=== PATIENT | male | born 1955 | race Caucasian/White ===

== ENCOUNTER → 2020-04-19 | Outpatient (CLI) | payer SELFPAY ==
[~2020-04-19] MED LIST: ANUSOL HC30 GM PO; Anusol Hc,Anuco25 MG PO; BENADRYL25 MG PO; BIAXIN500 MG PO; CELEXA20 MG PO; CLARITIN10 MG PO; CLEOCIN150 MG PO; COLACE100 MG PO; COMBIVENT1 ARO IH; DAILY MULTIPLE1 TA3 PO; HYDROCODONE BIT1 T11 PO; LEVOTHYROXINE0.05 MG PO; LISINOPRIL10 M1 PO; PEPCID20 MG PO; PHENERGAN25 M1 PO; PREDNICOT20 MG PO; TIZANIDINE4 MG PO; VITAMIN D2400 IU PO
== END | disposition home or self-care (01) ==
LOC: COVID19 15:48
DX: R05 Cough (principal); R50.9 Fever, unspecified; R11.10 Vomiting, unspecified; R06.02 Shortness of breath; R53.83 Other fatigue; Z20.828 Contact with and (suspected) exposure to other viral communicable diseases

== ENCOUNTER 2024-02-11 12:12 | Inpatient (IN) | payer OTHER ==
[~2024-02-11] VITALS: Ht 172.7 cm; Wt 56.5 kg
[2024-02-11 12:37] VITALS: BP 106/66
[2024-02-11 12:51] LABS: BASO % 0.2 % (0.0-1.0); EOS # 0.2 10*3/uL (0.0-0.4); HEMATOCRIT 41.6 % (42.0-52.0); LYMPH # 0.7 10*3/uL (1.3-4.4); LYMPH % 11.8 % (27.0-41.0); MEAN CELL VOLUME 103.7 fl (80.0-94.0); MEAN CORPUSCULAR HGB 33.7 pg (27.0-31.0); MEAN CORPUSCULAR HGB CONC 32.5 g/dl (33.0-37.0); MEAN PLATELET VOLUME 10.1 fl (9.6-12.3); MONO # 0.7 10*3/uL (0.1-1.0); MONO % 11.3 % (3.0-9.0); NEUT # 4.4 10*3/uL (2.3-7.9); NEUT % 73.4 % (47.0-73.0); PLATELET COUNT AUTOMATED 231 10*3/uL (130-400); RED BLOOD COUNT 4.01 10*6/uL (4.50-5.90); RED CELL DISTRI WIDTH 14.3 % (0-14.5)
[2024-02-11 13:12] LABS: ALKALINE PHOSPHATASE 63 U/L (46-116); BUN 14 mg/dl (9-23); CHLORIDE 101 mmol/L (98-107); LIPASE 37 U/L (12-53); POTASSIUM 3.6 mmol/L (3.4-5.1); SGPT/ALT 24 U/L (5-49); TOTAL PROTEIN 6.1 gm/dL (6.0-8.0)
[2024-02-11] MEDS ORDERED: Albuterol Sulf/Ipratropium 3 ML VIAL NEB ONE (13:50)
[2024-02-11] MEDS ORDERED: AZITHROMYCIN 250 ML IV ONE (13:50)
[2024-02-11] MEDS ORDERED: Ceftriaxone Sodium 1 GM/10 ML SYR IV ONE (13:50)
[2024-02-11] MEDS ORDERED: methylPREDNISolone sod succ 125 MG VIAL IV ONE (13:50)
[2024-02-11] MEDS ORDERED: ACETAMINOPHEN 325 MG TAB PO PRN (15:20)
[2024-02-11] MEDS ORDERED: BISACODYL 5 MG TAB PO PRN (15:20)
[2024-02-11] MEDS ORDERED: Ondansetron Hydrochloride 4 MG/2 ML VIAL IV PRN (15:20)
[2024-02-11] MEDS ORDERED: LORazepam 1 MG TAB PO PRN (15:30)
[2024-02-11 15:32] VITALS: BP 157/108
[2024-02-11] MEDS ORDERED: IOHEXOL 300 MG/ML 100 ML VIAL IV ONE (15:35)
[2024-02-11] MEDS ORDERED: Albuterol Sulf/Ipratropium 3 ML VIAL NEB SCH (15:45)
[2024-02-11 16:27] VITALS: BP 135/93
[2024-02-11 17:00] VITALS: BP 153/92
[2024-02-11] MEDS ORDERED: Nicotine 21 MG PATCH T SCH (18:00)
[2024-02-11 20:00] VITALS: BP 91/53
[2024-02-11 22:59] VITALS: BP 129/84
[2024-02-11] MEDS ORDERED: Melatonin 5 MG TABLET PO PRN (23:25)
[2024-02-12] VITALS: BP 131/93
[2024-02-12] MEDS ORDERED: Levothyroxine Sodium 50 MCG TAB PO SCH (06:00)
[2024-02-12] MEDS ORDERED: Pantoprazole Sodium 40 MG TAB PO SCH (06:00)
[2024-02-12 06:27] LABS: BASO % 0.2 % (0.0-1.0); EOS % 0.3 % (1.0-4.0); HEMATOCRIT 47.8 % (42.0-52.0); LYMPH # 0.9 10*3/uL (1.3-4.4); MEAN CELL VOLUME 102.8 fl (80.0-94.0); MEAN CORPUSCULAR HGB 33.3 pg (27.0-31.0); MEAN CORPUSCULAR HGB CONC 32.4 g/dl (33.0-37.0); MEAN PLATELET VOLUME 10.6 fl (9.6-12.3); MONO % 9.9 % (3.0-9.0); NEUT # 8.2 10*3/uL (2.3-7.9); NEUT % 80.2 % (47.0-73.0); PLATELET COUNT AUTOMATED 263 10*3/uL (130-400); RED BLOOD COUNT 4.65 10*6/uL (4.50-5.90); WHITE BLOOD COUNT 10.2 10*3/uL (4.8-10.8)
[2024-02-12 06:53] LABS: VITAMIN D, 25-HYDROXY 48.5 ng/mL (30-100)
[2024-02-12 06:54] LABS: BUN 14 mg/dl (9-23); CHLORIDE 100 mmol/L (98-107); CHOLESTEROL 184 mg/dL (<200); FREE T4 1.34 ng/dl (0.89-1.76); LDL CHOLESTEROL 61 mg/dL (9-159); POTASSIUM 3.6 mmol/L (3.4-5.1); TRIGLYCERIDES 74 mg/dl (<150)
[2024-02-12 08:00] VITALS: BP 118/50
[2024-02-12 08:15] VITALS: BP 150/82
[2024-02-12] MEDS ORDERED: hydrALAZINE hydrochloride 20 MG/ML VIAL IV ONE (08:40)
[2024-02-12] MEDS ORDERED: Nicotine 21 MG PATCH T SCH (10:00)
[2024-02-12] MEDS ORDERED: Enoxaparin Sodium 40 MG/0.4 ML SYR SC SCH (10:00)
[2024-02-12] MEDS ORDERED: CITALOPRAM 20 MG TAB PO SCH (10:00)
[2024-02-12] MEDS ORDERED: LISINOPRIL 10 MG TAB PO SCH (10:00)
[2024-02-12] MEDS ORDERED: NICOTINE PATCH1 EAC2 TD (10:49)
[2024-02-12] MEDS ORDERED: VIBRA-TAB100 MG PO (10:49)
[2024-02-12 12:00] VITALS: BP 110/63
[2024-02-12] MEDS ORDERED: Ceftriaxone Sodium 1 GM,IV 1 EA in SYRINGE INFUSION 10 ML IV SCH (14:00)
[2024-02-12] MEDS ORDERED: AZITHROMYCIN 250 ML IV SCH (15:00)
== END 2024-02-12 12:58 | disposition home or self-care (01) | DRG 191 ==
LOC: ED 12:12 → EDHOLD 14:09 → 4E 14:09 → EDHOLD 14:10 → 4E 16:08
PROVIDERS: Emergency Medicine; Registered Nurse; ADMIT Internal Medicine; ATTEND Internal Medicine
DX: J44.0 Chronic obstructive pulmonary disease with (acute) lower respiratory infection (principal); C34.90 Malignant neoplasm of unspecified part of unspecified bronchus or lung; E44.0 Moderate protein-calorie malnutrition; Z68.1 Body mass index [BMI] 19.9 or less, adult; J44.1 Chronic obstructive pulmonary disease with (acute) exacerbation; R91.1 Solitary pulmonary nodule; I10 Essential (primary) hypertension; E03.9 Hypothyroidism, unspecified; J20.9 Acute bronchitis, unspecified; K21.9 Gastro-esophageal reflux disease without esophagitis; F17.210 Nicotine dependence, cigarettes, uncomplicated; F10.90 Alcohol use, unspecified, uncomplicated; Z92.3 Personal history of irradiation; Z88.5 Allergy status to narcotic agent; Z79.899 Other long term (current) drug therapy; Z71.6 Tobacco abuse counseling

== ENCOUNTER 2024-08-21 07:24 | Emergency (ER) | payer OTHER ==
[~2024-08-21] VITALS: Ht 172.7 cm; Wt 56.2 kg
[~2024-08-21 07:24] MED LIST changes: +NICOTINE PATCH1 EAC2 TD; +VIBRA-TAB100 MG PO
[2024-08-21] MEDS ORDERED: Albuterol Sulfate 2.5 MG/3 ML VIAL NEB ONE (07:40)
[2024-08-21] MEDS ORDERED: methylPREDNISolone sod succ 125 MG VIAL IV ONE (07:40)
[2024-08-21] MEDS ORDERED: MAGNESIUM SULFATE 50 ML IV ONE (07:40)
[2024-08-21] MEDS ORDERED: PREDNISONE20 M1 PO (08:41)
[2024-08-21] MEDS ORDERED: AVPAK AZITHROM250 M1 PO (08:41)
== END 2024-08-21 09:29 | disposition home or self-care (01) ==
LOC: ED 07:24
DX: J44.1 Chronic obstructive pulmonary disease with (acute) exacerbation (principal); F41.9 Anxiety disorder, unspecified; R06.02 Shortness of breath; I10 Essential (primary) hypertension; F17.210 Nicotine dependence, cigarettes, uncomplicated; Z88.5 Allergy status to narcotic agent; Z90.89 Acquired absence of other organs

== ENCOUNTER 2024-09-24 15:59 | Inpatient (IN) | payer OTHER ==
[~2024-09-24] VITALS: Ht 165.1 cm; Wt 55.1 kg
[~2024-09-24 15:59] MED LIST changes: +AVPAK AZITHROM250 M1 PO; -LEVOTHYROXINE0.05 MG PO; +LEVOTHYROXINE125 MCG PO; +PREDNISONE20 M1 PO
[2024-09-24 17:16] VITALS: BP 145/95
[2024-09-24] MEDS ORDERED: AZITHROMYCIN 250 MG TAB PO ONE (17:30)
[2024-09-24] MEDS ORDERED: Albuterol Sulfate 2.5 MG/3 ML VIAL NEB ONE (17:30)
[2024-09-24] MEDS ORDERED: MAGNESIUM SULFATE 50 ML IV ONE (17:30)
[2024-09-24] MEDS ORDERED: SODIUM CHLORIDE 0.9% 1,000 ML IV ONE ×3 (17:30→23:14)
[2024-09-24] MEDS ORDERED: methylPREDNISolone sod succ 125 MG VIAL IV ONE (17:30)
[2024-09-24 17:44] LABS: BASO % 0.1 % (0.0-1.0); EOS % 0.1 % (1.0-4.0); HEMATOCRIT 47.5 % (42.0-52.0); LYMPH # 0.3 10*3/uL (1.3-4.4); LYMPH % 2.4 % (27.0-41.0); MEAN CELL VOLUME 97.5 fl (80.0-94.0); MEAN CORPUSCULAR HGB 32.9 pg (27.0-31.0); MEAN CORPUSCULAR HGB CONC 33.7 g/dl (33.0-37.0); MEAN PLATELET VOLUME 9.3 fl (9.6-12.3); MONO % 6.7 % (3.0-9.0); NEUT # 12.8 10*3/uL (2.3-7.9); PLATELET COUNT AUTOMATED 349 10*3/uL (130-400); RED BLOOD COUNT 4.87 10*6/uL (4.50-5.90); RED CELL DISTRI WIDTH 12.7 % (0-14.5); WHITE BLOOD COUNT 14.2 10*3/uL (4.8-10.8)
[2024-09-24 18:00] LABS: BUN 17 mg/dl (9-23); CHLORIDE 99 mmol/L (98-107); POTASSIUM 3.5 mmol/L (3.4-5.1)
[2024-09-24] MEDS ORDERED: Ceftriaxone Sodium 1 GM/10 ML SYR IV ONE (18:05)
[2024-09-24] MEDS ORDERED: ACETAMINOPHEN 650 MG SUPP R PRN (18:35)
[2024-09-24] MEDS ORDERED: BISACODYL 10 MG SUPP R PRN (18:35)
[2024-09-24] MEDS ORDERED: Ondansetron Hydrochloride 4 MG/2 ML VIAL IV PRN (18:35)
[2024-09-24] MEDS ORDERED: BISACODYL 5 MG TAB PO PRN (18:35)
[2024-09-24] MEDS ORDERED: Magnesium Hydroxide 30 ML UDC PO PRN (18:35)
[2024-09-24] MEDS ORDERED: ACETAMINOPHEN 325 MG TAB PO PRN (18:35)
[2024-09-24] MEDS ORDERED: Albuterol Sulf/Ipratropium 3 ML VIAL NEB SCH (19:00)
[2024-09-24] MEDS ORDERED: Nicotine 21 MG PATCH T SCH (21:00)
[2024-09-24 21:43] VITALS: BP 107/73
[2024-09-24] MEDS ORDERED: GUAIFENESIN 600 MG TAB ER PO SCH (22:00)
[2024-09-25] VITALS: BP 110/76
[2024-09-25 00:52] LABS: BILIRUBIN Negative (Negative); BLOOD Negative (Negative); CLARITY Cloudy (Clear); COLOR Yellow (Yellow); GLUCOSE Negative (Negative); KETONE 1+ (Negative); LEUKO ESTERASE Negative (Negative); NITRITE Negative (Negative); PH 5.5 (4.5-8.0)
[2024-09-25 01:00] LABS: BACTERIA 1+; RBC 0-2 rbc/hpf (0-2)
[2024-09-25 06:08] LABS: HEMATOCRIT 47.1 % (42.0-52.0); MEAN CELL VOLUME 96.9 fl (80.0-94.0); MEAN CORPUSCULAR HGB 32.9 pg (27.0-31.0); MEAN PLATELET VOLUME 9.7 fl (9.6-12.3); PLATELET COUNT AUTOMATED 352 10*3/uL (130-400); RED BLOOD COUNT 4.86 10*6/uL (4.50-5.90); RED CELL DISTRI WIDTH 12.8 % (0-14.5); WHITE BLOOD COUNT 13.1 10*3/uL (4.8-10.8)
[2024-09-25 06:39] LABS: ALKALINE PHOSPHATASE 88 U/L (46-116); BUN 15 mg/dl (9-23); CHLORIDE 102 mmol/L (98-107); CHOLESTEROL 194 mg/dL (<200); LDL CHOLESTEROL 112 mg/dL (9-159); POTASSIUM 4.3 mmol/L (3.4-5.1); SGPT/ALT 11 U/L (5-49); TOTAL PROTEIN 7.1 gm/dL (6.0-8.0); TRIGLYCERIDES 123 mg/dl (<150)
[2024-09-25 06:40] LABS: MANUAL DIFF REFLEX YES
[2024-09-25 07:09] LABS: PLATELET SUFFICIENCY NORMAL (NORMAL); TOTAL CELLS COUNTED 100 #CELLS
[2024-09-25 08:00] VITALS: BP 92/45
[2024-09-25 08:06] LABS: VITAMIN D, 25-HYDROXY 38.2 ng/mL (30-100)
[2024-09-25] MEDS ORDERED: methylPREDNISolone sod succ 40 MG VIAL IV SCH (10:00)
[2024-09-25] MEDS ORDERED: Enoxaparin Sodium 40 MG/0.4 ML SYR SC SCH (10:00)
[2024-09-25] MEDS ORDERED: LISINOPRIL 10 MG TAB PO SCH (10:00)
[2024-09-25] MEDS ORDERED: Levothyroxine Sodium 50 MCG TAB PO SCH (10:00)
[2024-09-25 12:00] VITALS: BP 100/46
[2024-09-25] MEDS ORDERED: BUPROPION HYDR150 M1 PO (12:47)
[2024-09-25] MEDS ORDERED: VITAMIN D350 MC2 PO (12:48)
[2024-09-25] MEDS ORDERED: PROTONIX TR40 M1 PO (12:51)
[2024-09-25] MEDS ORDERED: TAMSULOSIN HCL0.4 MG PO (12:53)
[2024-09-25] MEDS ORDERED: PILOCARPINE HYDR5 MG PO (12:54)
[2024-09-25] MEDS ORDERED: STRIVERDI RESPIM4 GM INH (12:56)
[2024-09-25] MEDS ORDERED: NORVASC5 MG PO (12:57)
[2024-09-25] MEDS ORDERED: CELECOXIB200 MG PO (12:57)
[2024-09-25] MEDS ORDERED: CLONIDINE HCL0.1 MG PO (12:58)
[2024-09-25] MEDS ORDERED: HYDROCHLOROTH12.5 M2 PO (12:58)
[2024-09-25] MEDS ORDERED: Ceftriaxone Sodium 1 GM in SYRINGE INFUSION 10 ML IV SCH (20:00)
[2024-09-25] MEDS ORDERED: AZITHROMYCIN 250 ML IV SCH (20:30)
== END 2024-09-25 13:28 | disposition left against medical advice (07) | DRG 871 ==
LOC: ED 15:59 → EDHOLD 18:22 → 4E 18:22
PROVIDERS: Emergency Medicine; Student in an Organized Health Care Education/Training Program; ADMIT Student in an Organized Health Care Education/Training Program; ATTEND Student in an Organized Health Care Education/Training Program
DX: A41.9 Sepsis, unspecified organism (principal); J15.69 Pneumonia due to other Gram-negative bacteria; J96.01 Acute respiratory failure with hypoxia; J96.02 Acute respiratory failure with hypercapnia; E87.1 Hypo-osmolality and hyponatremia; J44.1 Chronic obstructive pulmonary disease with (acute) exacerbation; C34.81 Malignant neoplasm of overlapping sites of right bronchus and lung; J44.0 Chronic obstructive pulmonary disease with (acute) lower respiratory infection; Z53.29 Procedure and treatment not carried out because of patient's decision for other reasons; F17.210 Nicotine dependence, cigarettes, uncomplicated; K21.9 Gastro-esophageal reflux disease without esophagitis; I10 Essential (primary) hypertension; E03.9 Hypothyroidism, unspecified; R73.9 Hyperglycemia, unspecified; Z79.899 Other long term (current) drug therapy; Z79.01 Long term (current) use of anticoagulants; Z79.2 Long term (current) use of antibiotics; Z88.8 Allergy status to other drugs, medicaments and biological substances; Z91.09 Other allergy status, other than to drugs and biological substances; Z92.3 Personal history of irradiation; Z71.6 Tobacco abuse counseling